=== PATIENT | male | born 1980 | race Two or more races ===

== ENCOUNTER 2019-05-06 09:21 | Emergency (ER) | payer OTHER ==
[~2019-05-06] VITALS: Ht 167.6 cm; Wt 88.9 kg
--- NOTE | 2019-05-06 09:41 | PHYS DOC ---
Adult General Chief Complaint Chief Complaint: FLU SYMPTOM HPI HPI Patient is 38-year-old male who presented to ER today for evaluation of fever, sore throat, body ache, cough with productive yellow sputum since last night. he denies any headache, no abdominal pain, no nausea vomiting. he denies any med ical problem, he is not on any medication currently. All other ROS is negative unless otherwise noted in HPI Review of Systems Review of Systems See above Allergies Allergies Allergies Coded Allergies Type Severity Reaction Last Updated Verified No Known Drug Allergies 05/06/19 No Physical Exam Physical Exam See above Constitutional: Well developed, well nourished, no acute distress, non-toxic appearance. [] HENT: Normocephalic, atraumatic, bilateral external ears normal, oropharynx moist, erythema, no oral exudates, nose normal. [] Eyes: PERRLA, EOMI, conjunctiva normal, no discharge. [] Neck: Normal range of motion, no tenderness, supple, no stridor. NO MENINGEAL SIGNS. Cardiovascular:Heart rate regular rhythm, no murmur [] Lungs & Thorax: Bilateral breath sounds clear to auscultation [] Abdomen: Bowel sounds normal, soft, no tenderness, no masses, no pulsatile masses. [] Skin: Warm, dry, no erythema, no rash. [] Back: No tenderness, no CVA tenderness. [] Extremities: No tenderness, no cyanosis, no clubbing, ROM intact, no edema. [] Neurologic: Alert and oriented X 3, normal motor function, normal sensory function, no focal deficits noted. [] Psychologic: Affect normal, judgement normal, mood normal. [] EKG EKG CHEST XRAY: NO ACUTE DISEASE Course & Med Decision Making Course & Med Decision Making Pertinent Labs and Imaging studies reviewed. (See chart for details) [] Dragon Disclaimer Dragon Disclaimer This electronic medical record was generated, in whole or in part, using a voice recognition dictation system. Departure Departure: Impression: Primary Impression: Acute pharyngitis Disposition: 01 HOME, SELF-CARE Condition: STABLE Referrals: PCP,NO (PCP) follow up with your doctor next week Patient Instructions: Viral and Bacterial Pharyngitis Scripts Ibuprofen (IBUPROFEN) 800 Mg Tablet 1 TAB PO TID for pain, #30 TAB Prov: LORENA SMITH DO 05/06/19 Amoxicillin/Potassium Clav (AMOX TR-K CLV 875-125 MG TAB) 1 Each Tablet 1 TAB PO BID for pharyngitis for 10 Days, #20 TAB Prov: LORENA SMITH DO 05/06/19 LORENA SMITH DO May 06, 2019 09:41
[2019-05-06 09:42] VITALS: BP 119/77
[2019-05-06] MEDS: KETOROLAC 60 MG/2 ML VIAL. IM ONE (09:45)
[2019-05-06] MEDS ORDERED: KETOROLAC 30 MG/ML VIAL. ONE (09:47)
--- NOTE | 2019-05-06 10:04 | RAD ---
CHEST PA LATERAL INDICATION: Dyspnea, cough. COMPARISON STUDY: None. FINDINGS: Lungs: Normal lung volume. No pulmonary mass or consolidation. The tracheobronchial tree and hilar structures are normal. Pleura: No pleural effusion or pneumothorax. Heart and Mediastinum: The cardiomediastinal silhouette is normal. The great vessels of the thorax are normal. Bones and Soft Tissues: The bones and soft tissues are within normal limits. IMPRESSION: No acute cardiopulmonary process. Electronically signed by: Xavier Amin MD (05/06/2019 10:01 AM) [id number]
[2019-05-06 10:30] LABS: INFLUENZA A PATIENT NEGATIVE (NEGATIVE); INFLUENZA B PATIENT NEGATIVE (NEGATIVE)
[2019-05-06] MEDS ORDERED: IBUP800T19 PO (11:05)
[2019-05-06] MEDS ORDERED: AMOX1TAB11 PO (11:05)
== END 2019-05-06 11:10 | disposition home or self-care (01) ==
LOC: ER 09:21
DX: J02.9 Acute pharyngitis, unspecified (principal)
CPT/HCPCS: 71046; 87070; 87804; 87880; 96372; 99285; J1885